=== PATIENT | male | born 1935 | race Caucasian/White ===

== ENCOUNTER 2017-05-11 08:50 | Inpatient (IN) | payer OTHER ==
--- NOTE | 2017-05-11 09:01 | EDPHY ---
H & P Time Seen by Provider: 05/11/17 08:51 HPI/ROS: CHIEF COMPLAINT: Altered mental status HISTORY OF PRESENT ILLNESS: The patient presents to the ED with reported altered mental status which began acutely at approximately 815 this morning. The patient reportedly lives at a memory unit. He has a history of dementia and Parkinson's disease. He reportedly was in his usual state of health this morning according to EMS and then was observed to collapse. Since that time he has been nonverbal. REVIEW OF SYSTEMS: A comprehensive 10 point review of systems is otherwise negative aside from elements mentioned in the history of present illness. Source: Patient Exam Limitations: Clinical condition Constitutional: Initial Vital Signs Heart Rate 71 05/11/17 09:01 Respiratory Rate 16 05/11/17 09:01 Blood Pressure 163/85 H 05/11/17 09:01 O2 Sat (%) 98 05/11/17 09:01 O2 Delivery Mode Nasal Cannula O2 (L/minute) 2 Allergies/Adverse Reactions: No Known Allergies Allergy (Unverified 10/18/10 20:51) Home Medications: Medication Instructions Recorded Ammonium Lactate [Lac Hydrin 12% 1 larry TP BID@,05/11/17 (*)] Aspirin [Aspirin 325 mg (*)] 325 mg PO DAILY 05/11/17 Atorvastatin Calcium [Lipitor 20 20 mg PO DAILY18 05/11/17 mg (*)] Carbidopa/Levodopa 25/100Mg 1 tab PO TID@,,05/11/17 [Sinemet 25/100 MG (*)] Cholecalciferol Vit D3 [Vitamin D3 2,000 units PO DAILY 05/11/17 2000 units tab (OTC)] Cyanocobalamin [Vitamin B12 (*)] 1,000 mcg PO DAILY 05/11/17 Docusate Sodium [Colace 100 MG (*)] 200 mg PO DAILY18 05/11/17 Donepezil HCl [Aricept 5 MG (*)] 10 mg PO HS 05/11/17 Fludrocortisone Acetate [Florinef 0.05 mg PO DAILY 05/11/17 0.1 MG (RX)] Herbals/Supplements -Info Only 1 ea PO DAILY 05/11/17 Ketoconazole 2% [Nizoral 2% Cream 1 larry TP DAILY 05/11/17 (*)] Mirabegron [Myrbetriq] 25 mg PO HS 05/11/17 [place]-3 Fatty Acids [Fish Oil 1000 2,000 mg PO DAILY 05/11/17 mg (*)] Oxybutynin Chloride Xl [Ditropan 20 mg PO DAILY18 05/11/17 Xl 5mg (*)] QUEtiapine FUMARATE [Seroquel 50 50 mg PO HS 05/11/17 mg (*)] guaiFENesin [Mucinex 600 MG (*)] 1,200 mg PO DAILY 05/11/17 Medical Decision Making - Diagnostics Imaging Results: Imaging Impressions Chest X-Ray 05/11/17 08:54 Impression: Negative Head CT 05/11/17 08:54 Impression: Negative. Initial negative results communicated to Dr. Donis Aguillon by Dr. Acevedo, with the patient on the CT table. Final concordant results called to Dr. Donis Aguillon at 9: [address] Mills. General information for patients regarding this examination can be found at [email or web address]. If you have questions or comments about this report, please contact me at (hospital) or [phone] (cell). Head CTA 05/11/17 09:10 Impression: Normal. Findings and recommendations discussed with Ketan Aguillon at 945 a.m. hour, 05/11/2017. Final report concurs with initial preliminary interpretation. Neck CTA 05/11/17 09:10 Impression: No dissection, stenosis, ulceration, or aneurysm. Findings and recommendations discussed with Ketan Aguillon at 9:45 AM hour, . Final report concurs with initial preliminary interpretation. Note: All stenoses are calculated using NASCET Criteria. ED Course/Re-evaluation: The patient presents the ED with acute altered mental status. He arrived as a stroke alert. The patient was quite encephalopathic and unable to provide a very good exam upon arrival. He was observed to withdrawal to pain all 4 extremities. The patient was taken for a stat noncontrast head CT scan which was read as demonstrating no evidence of an acute intracranial hemorrhage. The patient was seen in consultation by the neurologist who felt the patient was more likely encephalopathic than exhibiting symptoms of a stroke. They recommended a CT angiogram for further characterization. The patient was taken for emergent CT angiogram which demonstrates no evidence of avascular stenosis, thrombosis or dissection in the head or neck. The patient returned and was noted to be clinically improving. The patient has no evidence of an obvious metabolic syndrome or clear-cut evidence of urinary tract infection. The patient was noted to have bouts of bradycardia and associated hypotension. These were brief and self-limited. The patient did receive IV fluids. The patient will be admitted to the hospitalist for further observation. I discussed the case with Dr. Chaidez who will admit the patient. Differential Diagnosis: Differential diagnosis considered includes stroke, TIA, UTI, hypoglycemia, intracranial hemorrhage Critical Care Time: Critical care time exclusive of procedures and exclusive of the PA's time was 45 minutes, performed by myself, Ketan Aguillon MD. The patient was brought to the emergency department emergently is a stroke alert. He received emergent evaluation by the stroke neurologist. He was taken for [address] scans. The patient will require admission to the hospital for further observation and monitoring. - Data Points Laboratory Results: Laboratory Results 05/11/17 08:45 05/11/17 08:45 05/11/17 05/11/17 05/11/17 09:40 08:56 08:45 WBC RBC Hgb POC Hgb 16.3 gm/dL gm/dL (13.7-17.5) Hct POC Hct 48 % % (40-51) MCV MCH MCHC RDW Plt Count MPV Neut % (Auto) Lymph % (Auto) [place] % (Auto) Eos % (Auto) Baso % (Auto) Nucleat RBC Rel Count Absolute Neuts (auto) Absolute Lymphs (auto) Absolute Monos (auto) Absolute Eos (auto) Absolute Basos (auto) Absolute Nucleated RBC Immature Gran % Immature Gran # PT INR APTT POC Sodium 140 mEq/L mEq/L (135-145) Sodium 140 mEq/L mEq/L (135-145) POC Potassium 3.6 mEq/L mEq/L (3.3-5.0) Potassium 3.9 mEq/L mEq/L (3.5-5.2) POC Chloride 101 mEq/L mEq/L (97-110) Chloride 102 mEq/L mEq/L (97-110) Carbon Dioxide 26 mEq/l mEq/l (22-31) Anion Gap 12 mEq/L mEq/L (8-16) POC BUN 14 mg/dL mg/dL (7-23) BUN 14 mg/dL mg/dL (7-23) Creatinine 1.0 mg/dL mg/dL (0.7-1.3) POC Creatinine 1.1 mg/dL mg/dL (0.7-1.3) Estimated GFR > 60 Glucose 143 mg/dL H mg/dL (70-100) POC Glucose 161 mg/dL H mg/dL (70-100) Calcium 8.7 mg/dL mg/dL (8.5-10.4) Troponin I < 0.012 ng/mL ng/mL (0.000-0.034) Urine Color YELLOW Urine Appearance CLEAR Urine pH 6.0 (5.0-7.5) Ur Specific [place] > 1.035 H (1.002-1.030) Urine Protein 1+ H (NEGATIVE) Urine Ketones NEGATIVE (NEGATIVE) Urine Blood NEGATIVE (NEGATIVE) Urine Nitrate NEGATIVE (NEGATIVE) Urine Bilirubin NEGATIVE (NEGATIVE) Urine Urobilinogen NEGATIVE EU EU (0.2-1.0) Ur Leukocyte Esterase NEGATIVE (NEGATIVE) Urine RBC NONE SEEN /hpf /hpf (0-3) Urine WBC 3-5 /hpf H /hpf (0-3) Ur Epithelial Cells NONE SEEN /lpf /lpf (NONE-1+) Hyaline Casts 1-5 /lpf /lpf (0-1) Granular Casts 1-5 /lpf /lpf (0-1) Urine Mucus TRACE /lpf /lpf (NONE-1+) Urine Glucose 1+ H (NEGATIVE) 05/11/17 05/11/17 08:45 08:45 WBC 6.55 10^3/uL 10^3/uL (3.80-9.50) RBC 4.95 10^6/uL 10^6/uL (4.40-6.38) Hgb 15.8 g/dL g/dL (13.7-17.5) POC Hgb Hct 45.6 % % (40.0-51.0) POC Hct MCV 92.1 fL fL (81.5-99.8) MCH 31.9 pg pg (27.9-34.1) MCHC 34.6 g/dL g/dL (32.4-36.7) RDW 12.9 % % (11.5-15.2) Plt Count 255 10^3/uL 10^3/uL (150-400) MPV 9.3 fL fL (8.7-11.7) Neut % (Auto) 59.6 % % (39.3-74.2) Lymph % (Auto) 25.6 % % (15.0-45.0) [place] % (Auto) 10.5 % % (4.5-13.0) Eos % (Auto) 2.6 % % (0.6-7.6) Baso % (Auto) 0.8 % % (0.3-1.7) Nucleat RBC Rel Count 0.0 % % (0.0-0.2) Absolute Neuts (auto) 3.90 10^3/uL 10^3/uL (1.70-6.50) Absolute Lymphs (auto) 1.68 10^3/uL 10^3/uL (1.00-3.00) Absolute Monos (auto) 0.69 10^3/uL 10^3/uL (0.30-0.80) Absolute Eos (auto) 0.17 10^3/uL 10^3/uL (0.03-0.40) Absolute Basos (auto) 0.05 10^3/uL 10^3/uL (0.02-0.10) Absolute Nucleated RBC 0.00 10^3/uL 10^3/uL (0-0.01) Immature Gran % 0.9 % % (0.0-1.1) Immature Gran # 0.06 10^3/uL 10^3/uL (0.00-0.10) PT 14.7 SEC SEC (12.0-15.0) INR 1.13 (0.83-1.16) APTT 22.9 SEC L SEC (23.0-38.0) POC Sodium Sodium POC Potassium Potassium POC Chloride Chloride Carbon Dioxide Anion Gap POC BUN BUN Creatinine POC Creatinine Estimated GFR Glucose POC Glucose Calcium Troponin I Urine Color Urine Appearance Urine pH Ur Specific [place] Urine Protein Urine Ketones Urine Blood Urine Nitrate Urine Bilirubin Urine Urobilinogen Ur Leukocyte Esterase Urine RBC Urine WBC Ur Epithelial Cells Hyaline Casts Granular Casts Urine Mucus Urine Glucose Medications Given: Discontinued Medications Sodium Chloride (Ns) 1,000 mls @ 0 mls/hr IV EDNOW ONE; Wide Open PRN Reason: Protocol Stop: 05/11/17 10:47 Last Admin: 05/11/17 10:49 Dose: 1,000 mls Point of Care Test Results: 05/11/17 08:56 POC Sodium 140 POC Potassium 3.6 POC Chloride 101 POC BUN 14 POC Creatinine 1.1 POC Glucose 161 H Departure - Departure Disposition: [facility] Inpatient Acute Clinical Impression: Parkinsons disease, Altered mental status, Dementia Condition: Fair
[2017-05-11 09:07] LABS: PLATELET COUNT 255 10^3/uL (150-400)
--- NOTE | 2017-05-11 09:07 | CPEKG ---
Heart Rate: 61 RR Interval: 984 P-R Interval: 220 QRSD Interval: 102 QT Interval: 492 QTC Interval: 496 P [place]: -3 QRS [place]: -86 T Wave [place]: 70 EKG Severity - ABNORMAL ECG - EKG Impression: SINUS RHYTHM EKG Impression: VENTRICULAR PREMATURE COMPLEX EKG Impression: FIRST DEGREE AV BLOCK EKG Impression: LEFT ANTERIOR FASCICULAR BLOCK EKG Impression: BORDERLINE PROLONGED QT INTERVAL Electronically Signed By: Ketan Aguillon 11-May-2017 15:07:57
[2017-05-11 09:12] LABS: INR 1.13 (0.83-1.16); PROTIME(PATIENT) 14.7 SEC (12.0-15.0)
[2017-05-11] MEDS ORDERED: IOPAMIDOL (ISOVUE 370) 100 ML BTL IV ONE (09:14)
--- NOTE | 2017-05-11 09:25 | ASMTCMCOM ---
CM Note CM Note Notes: Pt arrived to ED as a Stroke Alert. Currently responsive to painful stimuli only. Spoke with RN & MD; RICHIE form, MOST form & Emergency Resident information form obtained. Pt is a resident at [facility] & has a hx of Parkinsons & Dementia. Spoke with [facility] & confirmed pt lives in Memory Care Unit. Pt's & MDPOA, Pat Gutierrez ([phone] c [phone]), contacted. Pat to contact pt's daughter Judith (c [phone]). Pat & Judith will be at [facility] as soon as possible. MD & RN updated. Paperwork given back to RN to be placed in pt's chart. CM will follow. Date Signed: 05/11/2017 09:24 AM Electronically Signed By:Madisyn Wing RN
[2017-05-11] MEDS ORDERED: NS 1,000 ML IV ONE ×2 (10:46)
[2017-05-11] MEDS ORDERED: ACETAMINOPHEN 325 MG TAB PO PRN (14:33)
--- NOTE | 2017-05-11 18:01 | GHP ---
[f rep st] HISTORY AND PHYSICAL DATE OF ADMISSION: 05/11/2017 PRIMARY CARE PROVIDER: [facility]. CHIEF COMPLAINT: Fall. HISTORY OF PRESENT ILLNESS: Mr. Gutierrez is a 81-year-old gentleman with a past medical history of dem entia and parkinsonism, who presented to the [facility] Emergency Room on 05/11/2017, after having a fall at his memory unit. He had been living at home with his up until about a w [place] point ago when he was transitioned to [facility] as he had been having increased falls at home, and his was unable to completely care for him. He was apparently ambulating around his room today when he reportedly slid to the floor while using his walker. There was some concern on i nitial EMS evaluation that he had a facial droop, so he came to the emergency room as a stroke alert. Teleneurology was consulted in the emergency room. The description received by the event was that he went to the ground; he was groaning but not conversant as he normally is. This was not described as a syncopal episode or losing consciousness. He does have a history of parkinsonism and followed b y neurology here locally and he also does have a history of orthostasis and is currently on Florinef. He follows with Cardiology here locally in regard to his Florinef prescription. PAST MEDICAL HISTORY: 1. Dementia. 2. Parkinsonism. 3. Coronary artery disease diagnosed by a cardiac catheterization, but no PCI or CABG was warranted by the nonocclusive disease found. 4. Orthostasis. 5. BPH. PAST SURGICAL HISTORY: 1. Cataract surgery. 2. Hernia repair. 3. TURP. MEDICATIONS: This medication list is taken from his ambulatory orders: 1. Aspirin 325 mg daily. 2. Lipitor 20 mg daily. 3. Carbidopa/levodopa 25/100 1 tab 3 times a day. 4. Vitamin D supplementation. 5. Vitamin B12 supplementation. 6. Colace 200 mg daily. 7. Aricept 10 mg nightly. 8. Florinef 0.1 mg tablet, half tablet daily. ALLERGIES: No known drug allergies. FAMILY HISTORY: No family history of Parkinson disease. His mother at a young age from kidney disease. SOCIAL HISTORY: Patient is a nonsmoker. He had lived with his up until just the past 2 weeks w hen he was transitioned into memory unit. CODE STATUS: Do not attempt resuscitation code status. REVIEW OF SYSTEMS: CONSTITUTIONAL: There has been no report of any fevers or chills. ENT: No rece nt upper respiratory illnesses. CARDIOVASCULAR: No complaints of any chest pain, palpitations, or s yncopal episodes. RESPIRATORY: No complaints of shortness of breath or productive cough. GI: No n ausea, vomiting, diarrhea, or constipation. No focal abdominal pains. : He does have a history o f frequency of urination for which he had been taking Myrbetriq and Ditropan. NEUROLOGIC: Positive for parkinsonism history and followed by neurology here locally. No history of strokes. HEMATOLOGIC : No history of any deep vein thrombosis or pulmonary embolism. PSYCHIATRIC: No history of anxiety or depression. ENDOCRINE: No history of thyroid abnormalities or diabetes. SKIN: No new skin sonja hes. MUSCULOSKELETAL: No focal joint pains. PHYSICAL EXAMINATION: VITAL SIGNS: Temperature 36.5, blood pressure 108/63, heart rate 73, respirat ions 16, satting 98% on room air. GENERAL: Patient resting comfortably, lying on his side in the be d, arousable, somewhat conversant, no acute distress. HEENT: Extraocular movements appear intact. No scleral icterus. Mucous membranes moist. NECK: Supple. No thyroid enlargement appreciated. CH EST: Clear on auscultation. Normal respiratory effort. HEART: Regular rate and rhythm. No murmur s. ABDOMEN: Soft, nontender, nondistended. : No Padgett catheter in place. EXTREMITIES: No signif icant pitting edema. MUSCULOSKELETAL: No calf pain with palpation. NEUROLOGIC: Cranial nerves 2 t [id number] appear intact. Strength appears 5/5 in all extremities. His hand grasp was 5/5 and he had difficulty releasing his hand grasps when instructed to. He does have some cogwheel rigidity, I susp ect, of the upper extremities and masked facies with bradykinesia. LABORATORY DATA: White blood cell count 6, hemoglobin 15, platelets 255. Sodium 140, potassium 3.9, chloride 102, bicarb 26, BUN 14, creatinine 1.0, glucose 143. INR 1.1, PTT 22. Troponin less than 0.012. Urinalysis: Negative nitrite, negative leukocyte esterase. IMAGIN. Chest x-ray: Negative. 2. Head CT without contrast: Negative. 3. CTA head and neck: Normal CTA of the head. No dissection, stenosis, ulceration, or aneurysm see n on the CTA of the neck. ASSESSMENT/PLAN: 1. Fall: Uncertain etiology and probably multifactorial. I certainly think that the history of ort hostasis probably is playing a role and will continue with his current Florinef. Parkinsonism may diaz ve contributed to the fall, as well. I did put in for a neurology consultation for reassessment of h is current medication therapy and to determine if any changes are needed. I do recommend that we try to hold off on his Seroquel for now as this could have been playing a role in this; it sounds like i t was a recently started medication. Also recommend we hold off on Ditropan and Myrbetriq for the ti me being as well. PT and OT consults have been placed. 2. Dementia: Will continue with current Aricept. 3. Parkinsonism: Await consultation from Neurology. 4. Coronary artery disease: Currently asymptomatic. Patient apparently had nonocclusive disease on prior cardiac catheterization. Continue current medical management including aspirin and statin the rapy. 5. Orthostasis: Continue current Florinef. Of note patient did have a one blood pressure reading o f 69/46 while in the emergency room. 6. Benign prostatic hypertrophy: Will need to monitor urinary symptoms after holding Myrbetriq and Ditropan. 7. Deep venous thrombosis prophylaxis: Lovenox. DISPOSITION: I will admit him under an observation status. I talked with his , who stated she w as uncertain if he would be able to go back to [facility] after discharge from the hospital here. She did state there was a facility in [place], which they have been looking at as a possible alterna tive option for his placement. I did touch base with Social Work this afternoon, and they are aware and looking at the issue. The patient is a [id number]-resuscitation code status. /[id number]/MODL
[2017-05-11] MEDS: DOCUSATE SODIUM 100 MG CAP PO SCH (18:22)
[2017-05-11] MEDS: AMMONIUM LACTATE 12% 8 OZ LOTION TP SCH (18:22)
[2017-05-11] MEDS: ATORVASTATIN CALCIUM 20 MG TAB PO SCH (18:22)
[2017-05-11] MEDS: CARBIDOPA/LEVODOPA 25 MG/100 MG TAB PO SCH (18:22)
[2017-05-11] MEDS: DONEPEZIL HCL 5 MG TAB PO SCH (22:26)
[2017-05-12] MEDS ORDERED: QUEtiapine FUMARATE 25 MG TAB PO ONE (00:20)
[2017-05-12 05:16] LABS: PLATELET COUNT 229 10^3/uL (150-400)
[2017-05-12] MEDS: CYANO/VITAMIN B12 1000 MCG TAB PO SCH (08:48)
[2017-05-12] MEDS: CARBIDOPA/LEVODOPA 25 MG/100 MG TAB PO SCH ×3 (08:48→18:49)
[2017-05-12] MEDS: ENOXAPARIN 40 MG/0.4 ML SYR SC SCH (08:48)
[2017-05-12] MEDS: ASPIRIN 325 MG TAB PO SCH (08:48)
[2017-05-12] MEDS: CHOLECALCIFEROL VIT D3 2,000 UNITS TAB/CAP PO SCH (08:48)
--- NOTE | 2017-05-12 10:26 | HOSPPROG ---
Hospitalist Progress Note Assessment/Plan: Patient is a 81-year-old male with a history of dementia and Parkinson's. He presented to the emergency room after sustaining a fall at his memory care unit. There was some initial concern that he had a facial droop. He presented as a stroke alert. Tele neurology was consulted. He had a CTA of his head and neck which showed nothing acute. Today is my 1st encounter with the patient. Chart reviewed. Reviewed his care with neurology and will not resume Seroquel. Melatonin will be used for sleep. * gait instability with a fall -suspect this is multi factorial. He has Parkinson's as well as underlying dementia -Seroquel, Ditropan and Myrbetriq have been held in case they are causing problems with him falling * Parkinson's -likely has underlying orthostasis: Florinef resume *dementia -quite significant *CAD -no complaints *BPH *DVT prophylaxis: LMWH *Plan: will ask PT and OT to evaluate. During my evaluation, his gait was unsteady and he has significant dementia. He is at high risk for falling. He will require another midnight stay for further evaluation. Suspect he needs a higher level of care. Subjective: Doc is sitting on side of bed, has no complaints. Objective: Vital Signs Temp Pulse Resp BP Pulse Ox 36.4 C 86 16 136/88 H 96 05/12/17 07:24 05/12/17 07:24 05/12/17 07:24 05/12/17 07:24 05/12/17 07:24 Laboratory Results 05/12/17 05:01 05/12/17 05:01 05/11/17 05/12/17 05/13/17 05:59 05:59 05:59 Intake Total 1500 Output Total 150 Balance 1350 PT 14.7 SEC (12.0-15.0) 05/11/17 08:45 INR 1.13 (0.83-1.16) 05/11/17 08:45 - Physical Exam Constitutional: chronically ill appearing, other (thin) Eyes: PERRL Ears, Nose, Mouth, Throat: hearing normal Cardiovascular: regular rate and rhythym Respiratory: no respiratory distress Skin: warm Musculoskeletal: generalized weakness Neurologic: other (alert, oriented to himself only) Psychiatric: encephalopathic, poor insight, poor judgement, poor memory ICD10 Worksheet Patient Problems: Problems Problem Status Onset Altered mental status Acute Dementia Acute Parkinsons disease Acute
[2017-05-12] MEDS: AMMONIUM LACTATE 12% 8 OZ LOTION TP SCH ×2 (12:45→20:32)
--- NOTE | 2017-05-12 12:49 | GCON ---
[f rep st] CONSULTATION NEUROLOGY CONSULTATION DATE OF CONSULTATION: 05/12/2017 REFERRING PHYSICIAN: Dr. Chaidez. CHIEF COMPLAINT: Dementia and alteration of mental status. HISTORY OF PRESENT ILLNESS: The patient is a very pleasant 81-year-old gentleman well known to the neurology service, as he sees my group as an outpatient for dementia with parkinsonian features, query Lewy body disease. He has been treated with dopaminergic agents in the past, but they were discontinued due to blood pressure side effects. He had recently been tried on gabapentin for sleep, but caused adverse affects, and it was discontinued, then more recently put on Seroquel just a few days ago. In this context, he was transferred to [facility] from his home for a new living situation. He had sudden change in mental status after starting Seroquel, and was transferred to the Emergency Department. He appeared "slumped over his walker" briefly according to his . Unclear if he fell asleep or had altered mental status. He had a full stroke assessment performed. Head CT without contrast was negative. CTA of the neck showed no dissection, stenosis, ulceration, or aneurysm. CTA of the head was normal. Initial labs showed essentially normal CBC. Chemistries showed normal sodium and creatinine. REVIEW OF SYSTEMS: Done with his present, and only pertinent per HPI. For past medical history, social history, family history, home medications, allergies see Dr. Chaidez's H and P. PHYSICAL EXAMINATION: VITAL SIGNS: Blood pressure 136/88, temperature 36.4, heart rate 67, respirations 16. GENERAL: The patient is awake and alert. NEURO: Higher mental function, he has significant cognitive impairment, and is unable to answer questions coherently, and trails off his answers due to his underlying dementia. Cranial nerve exam reveals full extraocular movements. On motor exam, there is no convulsive movements or tremor at rest on exam today. IMPRESSION AND PLAN: 1. Dementia. Overall, he certainly may have had side effects from Seroquel or other nonspecific changes in mental status in the setting of advanced dementia. We will discontinue Seroquel. Gabapentin has already been discontinued. Going forward, I have counseled the patient and his that they could use over-the- counter melatonin 5-10 mg at bedtime for sleep as needed. They are agreeable. They will follow up with Mr. Walker as an outpatient for continued neurologic assessment and to discuss other non-dopaminergic agents in the setting of query Lewy body disease. No further recommendations. He will likely discharge back to [facility] in the near future. We will sign off and follow up as needed. Please do not hesitate to call with any questions or changes in neurologic status with this very pleasant patient. seventy minutes floor time, reviewing outpatient records, inpatient records, direct counseling with the patient and his family, and coordination of care. /[id number]/MODL MTDD
[2017-05-12] MEDS: FLUDROCORTISONE ACETATE 0.1 MG TAB PO SCH (13:56)
[2017-05-12] MEDS: guaiFENesin 600 MG TAB.ER PO SCH (13:57)
[2017-05-12] MEDS: OMEGA-3 FATTY ACIDS 1,000 MG CAP PO SCH (13:58)
--- NOTE | 2017-05-12 16:29 | PDMN ---
Medical Necessity Medical necessity: C/M review: est. > 2 MN LOS for eval and TX of acute and persistent gait instability requiring ongoing hold Serequel, Ditropan and Mybetriq medications in case they are causing patient problems with falling, acute inpt PT/OT, comorbid fall prior to this admission, Parkinson's disease, significant dementia, CAD, BPH, patient is at high risk of falling per 2017 Hospitalist progress notes.
[2017-05-12] MEDS: ATORVASTATIN CALCIUM 20 MG TAB PO SCH (18:49)
[2017-05-12] MEDS: DOCUSATE SODIUM 100 MG CAP PO SCH (18:50)
[2017-05-12] MEDS: DONEPEZIL HCL 5 MG TAB PO SCH (20:46)
[2017-05-13 04:49] LABS: PLATELET COUNT 245 10^3/uL (150-400)
[2017-05-13 05:14] VITALS: RESP 18
[2017-05-13] MEDS: ASPIRIN 325 MG TAB PO SCH (08:12)
[2017-05-13] MEDS: CARBIDOPA/LEVODOPA 25 MG/100 MG TAB PO SCH (08:12)
[2017-05-13] MEDS: AMMONIUM LACTATE 12% 8 OZ LOTION TP SCH (08:13)
[2017-05-13] MEDS: FLUDROCORTISONE ACETATE 0.1 MG TAB PO SCH (08:13)
--- NOTE | 2017-05-13 08:41 | HOSPPROG ---
Hospitalist Progress Note Assessment/Plan: Patient is a 81-year-old male with a history of dementia and Parkinson's. He presented to the emergency room after sustaining a fall at his memory care unit. There was some initial concern that he had a facial droop. He presented as a stroke alert. Tele neurology was consulted. He had a CTA of his head and neck which showed nothing acute. * gait instability with a fall -suspect this is multi factorial. He has Parkinson's as well as underlying dementia -Seroquel, Ditropan and Myrbetriq have been held in case they are causing problems with him falling * Parkinson's -likely has underlying orthostasis: Florinef resume *dementia -quite significant *CAD -no complaints *BPH *DVT prophylaxis: LMWH *Plan: changed his code status to DNR/ to return to [place] this morning/ not to resume Seroquel Subjective: Doc is asking for his . Objective: Vital Signs Temp Pulse Resp BP Pulse Ox 37.2 C 85 18 174/94 H 95 05/13/17 04:00 05/13/17 04:00 05/13/17 04:00 05/13/17 04:00 05/13/17 04:00 Laboratory Results 05/13/17 04:40 05/13/17 04:40 05/12/17 05/13/17 05/14/17 05:59 05:59 05:59 Intake Total 340 Balance 340 PT 14.7 SEC (12.0-15.0) 05/11/17 08:45 INR 1.13 (0.83-1.16) 05/11/17 08:45 - Physical Exam Constitutional: chronically ill appearing Eyes: PERRL Ears, Nose, Mouth, Throat: hearing normal Respiratory: no respiratory distress Skin: warm Musculoskeletal: generalized weakness Neurologic: other (alert) Psychiatric: encephalopathic, flat affect, poor insight, poor judgement, poor memory ICD10 Worksheet Patient Problems: Problems Problem Status Onset Altered mental status Acute Dementia Acute Parkinsons disease Acute
--- NOTE | 2017-05-13 09:10 | PDIAF ---
- Diagnosis Diagnosis: gait instablity w fall, advanced Parkinsons Code Status: Do Not Resuscitate - Medication Management Discharge Medications: Medications to Continue on Transfer Ammonium Lactate [Lac Hydrin 12% (*)] 1 larry TP BID@05/11/17 [Last Taken 18:00] Aspirin [Aspirin 325 mg (*)] 325 mg PO DAILY 05/11/17 [Last Taken 05/10/17] Atorvastatin Calcium [Lipitor 20 mg (*)] 20 mg PO DAILY18 05/11/17 [Last Taken 05/10/17] Carbidopa/Levodopa 25/100Mg [Sinemet 25/100 MG (*)] 1 tab PO TID@ [Last Taken 05/10/17 18:00] Cholecalciferol Vit D3 [Vitamin D3 2000 units tab (OTC)] 2,000 units PO DAILY [Last Taken 05/10/17] Cyanocobalamin [Vitamin B12 (*)] 1,000 mcg PO DAILY 05/11/17 [Last Taken ] Docusate Sodium [Colace 100 MG (*)] 200 mg PO DAILY18 05/11/17 [Last Taken 05/10] Donepezil HCl [Aricept 5 MG (*)] 10 mg PO HS 05/11/17 [Last Taken 05/10/17] Fludrocortisone Acetate [Florinef] 0.05 mg PO DAILY 05/11/17 [Last Taken ] Herbals/Supplements -Info Only 1 ea PO DAILY 05/11/17 [Last Taken Unknown] Ketoconazole 2% [Nizoral 2% Cream (*)] 1 larry TP DAILY 05/11/17 [Last Taken 05/10] [place]-3 Fatty Acids [Fish Oil 1000 mg (*)] 2,000 mg PO DAILY 05/11/17 [Last Taken 05/10/17] guaiFENesin [Mucinex 600 MG (*)] 1,200 mg PO DAILY 05/11/17 [Last Taken 05/10/17 ] Acetaminophen [Tylenol 325mg (*)] 650 mg PO Q4HRS PRN tab 05/13/17 [Last Taken Unknown] Discharge Medications: Refer to the Discharge Home Medication list for PRN reason. - Orders Services needed: Physical Therapy, Occupational Therapy Diet Recommendation: no restrictions on diet Diet Texture: Regular Texture Diet Additional: Seroquel has been discontinued. If patient needs help with sleep recommendation is a trial Melatonin. Myrbetriq and Ditropan have been dc in case these are affecting his risk of falling. Recommending talking w PCP if these should be restarted. - Follow Up Care Current Providers and Referrals: Patient,NotPresent [Unknown] - As per Instructions
[2017-05-13 09:15] VITALS: BP 110/68; PULSE 75; TEMP 97.4; O2SAT 97
[2017-05-13] MEDS: CHOLECALCIFEROL VIT D3 2,000 UNITS TAB/CAP PO SCH (09:22)
[2017-05-13] MEDS: CYANO/VITAMIN B12 1000 MCG TAB PO SCH (09:22)
[2017-05-13] MEDS: guaiFENesin 600 MG TAB.ER PO SCH (09:22)
[2017-05-13] MEDS: OMEGA-3 FATTY ACIDS 1,000 MG CAP PO SCH (09:23)
--- NOTE | 2017-05-13 09:33 | GDS ---
[f rep st] DISCHARGE SUMMARY DISCHARGE DIAGNOSES: 1. Gait instability with fall. 2. Advanced Parkinson's. 3. Significant dementia. 4. Coronary artery disease. 5. Benign prostatic hypertrophy. CONSULTATION: Dr. Trevin Akhtar. HISTORY OF PRESENT ILLNESS: Briefly the patient is a 81-year-old male with a history of dementia and Parkinson's. He presented to the emergency room after sustaining a fall at the memory care unit. T here was initial concern that he had facial droop and was presented as stroke and alert. Tele neurol ogy was consulted. He had imaging done that did not indicate anything acute. The suspicion is that he fell being started on Seroquel. HOSPITAL COURSE: 1. Gait instability with fall. This is multifactorial with his advanced Parkinson's as well as adva nced dementia. Seroquel, Ditropan and Myrbetriq have all been held. The recommendation is to not re sume the Seroquel. 2. Parkinson's. He likely has underlying orthostasis. Florinef was resumed. 3. Dementia. This is quite significant. 4. Coronary artery disease. No complaints. DISCHARGE CONDITION: Stable. Blood pressure is 174/94, heart rate is 85, respiratory rate is 18, O2 saturation on room air 95%, te mperature is 37.2 Celsius. MEDICATIONS AT DISCHARGE: Please see the EMR. DISCHARGE INSTRUCTIONS: To further follow up with the primary care provider to evaluate which medica tions can be continued. /[id number]/MODL
--- NOTE | 2017-05-13 10:25 | ASDISCHSUM ---
Discharge Information Plan Status:Assisted Living Medically Cleared to Leave:05/13/2017 Discharge Date:05/13/2017 CM D/C Disposition:Assisted Living ADT D/C Disposition:Group Home Facility Projected Discharge Date:05/13/2017 12:00 PM Transportation at D/C:ALS/BLS Discharge Delay Reason: Follow-Up Date:05/13/2017 12:00 PM Discharge Slot:1 - 8:01 am - 12:00 noon Final Diagnosis:AMS, Dementia, Parkinson's Placement Information Referral Type:*Home Health Care Services Referral ID:[id number] Provider Name:[facility] (formerly [facility]) Address 1:[address] [address] Address 2: City:[place] Selection Factors: State:[place] Referral Type:*Retirement/SNF Referral ID:[id number] Provider Name: Address 1: Phone Number: Address 2: Fax Number: City: Selection Factors: State: Patient Contact Information Contact Name:BAY Relationship:Daughter Address: City: [facility] Phone: State/Zip Code: Email: Financial Information Financial Class:Medicare Primary Plan Desc:MEDICARE OUTPATIENT Primary Plan Number:[id number] Secondary Plan Desc:[employer] Secondary Plan Number:[id number] Assessment Information BC CM Progress Note CM Note CM Note Notes: Pt arrived to ED as a Stroke Alert. Currently responsive to painful stimuli only. Spoke with RN & MD; RICHIE form, MOST form & Emergency Resident information form obtained. Pt is a resident at [facility] & has a hx of Parkinsons & Dementia. Spoke with [facility] & confirmed pt lives in Memory Care Unit. Pt's & MDPASPEN, Pat Gutierrez ([phone] c [phone]), contacted. Pat to contact pt's daughter Judith (c [phone]). & Judith will be at [facility] as soon as possible. MD & RN updated. Paperwork given back to RN to be placed in pt's chart. CM will follow. Date Signed: 05/11/2017 09:24 AM Electronically Signed By:Madisyn Wing RN Case Management Discharge Plan Note Case Management Discharge Discharge Order Complete? Answers: Yes Patient to Obtain Answers: via Family Medications Transportation Arranged Answers: [facility] will Pick (Date 05/13/2017 11:30 AM & Time) Case Management Transport Answers: Yes Form Complete Faxed Final Orders Answers: Yes Notes: to Family Notified Answers: Yes Notes: Spoke to Discharge Comments Notes: Patient has been discharged to [facility] Faxed patient info to . [facility] to transport Date Signed: 05/13/2017 10:15 AM Electronically Signed By:Noelle Steven LCSW Intervention Information Intervention Type:Locating Emergency Contact Date of Service:05/11/2017 11:35 AM Patient Type:Observation Staff Member:EDDIE Wing Courtney Hours:0.25 Discipline: Severity: Comment:
[2017-05-13] MEDS: ENOXAPARIN 40 MG/0.4 ML SYR SC SCH (10:36)
== END 2017-05-13 11:42 | DRG 57 ==
LOC: EDUNIT# → F3N 13:45 → OBSVTOIN 05-12 14:48
PROVIDERS: ADMIT Internal Medicine; ATTEND Internal Medicine
DX: G31.83 Neurocognitive disorder with Lewy bodies (principal); R29.6 Repeated falls; T43.505A Adverse effect of unspecified antipsychotics and neuroleptics, initial encounter; F02.80 Dementia in other diseases classified elsewhere, unspecified severity, without behavioral disturbance, psychotic disturbance, mood disturbance, and anxiety; I25.10 Atherosclerotic heart disease of native coronary artery without angina pectoris; N40.0 Benign prostatic hyperplasia without lower urinary tract symptoms; W19.XXXA Unspecified fall, initial encounter; Z66 Do not resuscitate
CPT/HCPCS: 82947-QW; G0378; J1650; Q9967

== ENCOUNTER 2017-05-21 18:44 | Emergency (ER) | payer OTHER ==
[2017-05-21 18:53] VITALS: RESP 16; TEMP 98.2
--- NOTE | 2017-05-21 18:57 | EDPHY ---
HPI/HX/ROS/PE/MDM Narrative: CHIEF COMPLAINT: Fall HPI: This patient is a non-anticoagulated 81 y/o male with history of dementia with parkinsonian features arriving via EMS following an unwitnessed fall earlier this evening. [place] [facility] [place] on ground level, likely from standing. Per EMS report, vitals were stable in transport. They did not find any obvious trauma on exam. The patent denies any pain. He does not remember why he is here in the emergency department. The patient was recently admitted 05/12/17 following another fall at his memory care facility. HPI primarily obtained from EMS report at bedside. Further HPI unobtainable due to patient's Alzheimer's dementia. REVIEW OF SYSTEMS: Unobtainable due to patient's dementia. PMH: Dementia with parkinsonian features. CAD. Orthostasis. BPH. Hernia repair. TURP. SOCIAL HISTORY: [place] [facility] [place] . [place]. PHYSICAL EXAM: General:Patient is alert, in no acute distress. ENT:Eyes are normal to inspection. ENT inspection normal. Neck: Normal inspection. Full range of motion. Respiratory:No respiratory distress. Breath sounds normal bilaterally. Cardiovascular: Regular rate and rhythm. Strong peripheral pulses. Normal cap refill. Abdomen:The abdomen is nontender to palpation. There are no peritoneal signs. There are normal bowel sounds. Back: Normal to inspection. No tenderness to palpation. Skin: Normal color. No rash. Warm and dry. Extremities: Normal appearance. Full range of motion. Neuro: Conversant. No focal deficits. ED Course: 18:48 Met EMS at bedside. 81 y/o male with advanced dementia with parkinsonian features presents following an unwitnessed fall. Plan for EKG, labs including CBC, chemistries, troponin. The patient was recently admitted two weeks ago following a mechanical fall secondary to gait instability. As this fall was unwitnessed and the patient cannot remember what happened, I would like to rule out cardiac etiology for possible syncopal event. EKG was ordered and interpreted by myself. Please see [employer] system for official reading. Sinus rhythm with PAC. Reviewed laboratory studies. Troponin negative. Labs otherwise unremarkable. 19:31 Patient's family at bedside. Discussed patient's ED course and plan. I did not note any trauma on exam, but the family states they noticed a new bump on the patient's head. Plan for CT head w/o contrast. 20:[address] Gibson, radiologist. CT head negative for acute processes. 20:20 Reassessed patient. Discussed imaging results with him and his family. Plan to discharge home in good condition. Follow up and return precautions discussed. They are comfortable with this plan. They had initially inquired whether the patient could be admitted to the hospital [facility] for observation. I agreed to this plan but also mentioned that I see no medical indication for admission at this time. The patient seems like he would most benefit from a higher level of care and family is in process of working on this, and have found a 11/09 caregiver to ensure safety at this living facility. - Data Points Imaging Results: Imaging Impressions Head CT 05/21/17 19:39 Impression: Stable negative noncontrast CT of the brain . Results called to Dr. Morteza Martinez at 8:15 PM at the time of the interpretation. Imaging: Discussed imaging studies w/ computer technology instructor Radiologist Laboratory Results: Laboratory Results 05/21/17 19:03 05/21/17 19:03 05/21/17 05/21/17 19:03 19:03 WBC 6.42 10^3/uL 10^3/uL (3.80-9.50) RBC 4.43 10^6/uL 10^6/uL (4.40-6.38) Hgb 14.1 g/dL g/dL (13.7-17.5) Hct 41.2 % % (40.0-51.0) MCV 93.0 fL fL (81.5-99.8) MCH 31.8 pg pg (27.9-34.1) MCHC 34.2 g/dL g/dL (32.4-36.7) RDW 13.0 % % (11.5-15.2) Plt Count 246 10^3/uL 10^3/uL (150-400) MPV 9.5 fL fL (8.7-11.7) Neut % (Auto) 74.9 % H % (39.3-74.2) Lymph % (Auto) 12.3 % L % (15.0-45.0) [place] % (Auto) 10.1 % % (4.5-13.0) Eos % (Auto) 0.6 % % (0.6-7.6) Baso % (Auto) 0.5 % % (0.3-1.7) Nucleat RBC Rel Count 0.0 % % (0.0-0.2) Absolute Neuts (auto) 4.81 10^3/uL 10^3/uL (1.70-6.50) Absolute Lymphs (auto) 0.79 10^3/uL L 10^3/uL (1.00-3.00) Absolute Monos (auto) 0.65 10^3/uL 10^3/uL (0.30-0.80) Absolute Eos (auto) 0.04 10^3/uL 10^3/uL (0.03-0.40) Absolute Basos (auto) 0.03 10^3/uL 10^3/uL (0.02-0.10) Absolute Nucleated RBC 0.00 10^3/uL 10^3/uL (0-0.01) Immature Gran % 1.6 % H % (0.0-1.1) Immature Gran # 0.10 10^3/uL 10^3/uL (0.00-0.10) Sodium 140 mEq/L mEq/L (135-145) Potassium 4.5 mEq/L mEq/L (3.5-5.2) Chloride 103 mEq/L mEq/L (97-110) Carbon Dioxide 23 mEq/l mEq/l (22-31) Anion Gap 14 mEq/L mEq/L (8-16) BUN 23 mg/dL mg/dL (7-23) Creatinine 1.3 mg/dL mg/dL (0.7-1.3) Estimated GFR 53 Glucose 112 mg/dL H mg/dL (70-100) Calcium 9.0 mg/dL mg/dL (8.5-10.4) Troponin I < 0.012 ng/mL ng/mL (0.000-0.034) General Time Seen by Provider: 05/21/17 18:45 Initial Vital Signs: Initial Vital Signs Temperature (C) 36.8 C 05/21/17 18:51 Heart Rate 74 05/21/17 18:51 Respiratory Rate 16 05/21/17 18:51 Blood Pressure 117/84 H 05/21/17 18:51 O2 Sat (%) 95 05/21/17 18:51 O2 Delivery Mode Room Air Allergies/Adverse Reactions: No Known Allergies Allergy (Unverified 10/18/10 20:51) Home Medications: Medication Instructions Recorded Ammonium Lactate [Lac Hydrin 12% 1 larry TP BID@,05/11/17 (*)] Aspirin [Aspirin 325 mg (*)] 325 mg PO DAILY 05/11/17 Atorvastatin Calcium [Lipitor 20 20 mg PO DAILY18 05/11/17 mg (*)] Carbidopa/Levodopa 25/100Mg 1 tab PO TID@,,05/11/17 [Sinemet 25/100 MG (*)] Cholecalciferol Vit D3 [Vitamin D3 2,000 units PO DAILY 05/11/17 2000 units tab (OTC)] Cyanocobalamin [Vitamin B12 (*)] 1,000 mcg PO DAILY 05/11/17 Docusate Sodium [Colace 100 MG (*)] 200 mg PO DAILY18 05/11/17 Donepezil HCl [Aricept 5 MG (*)] 10 mg PO HS 05/11/17 Fludrocortisone Acetate [Florinef] 0.05 mg PO DAILY 05/11/17 Herbals/Supplements -Info Only 1 ea PO DAILY 05/11/17 Ketoconazole 2% [Nizoral 2% Cream 1 larry TP DAILY 05/11/17 (*)] [place]-3 Fatty Acids [Fish Oil 1000 2,000 mg PO DAILY 05/11/17 mg (*)] guaiFENesin [Mucinex 600 MG (*)] 1,200 mg PO DAILY 05/11/17 Acetaminophen [Tylenol 325mg (*)] 650 mg PO Q4HRS PRN tab 05/13/17 Departure - Departure Disposition: Home, Routine, Self-Care Clinical Impression: Fall Dementia Qualifiers: Dementia type: Parkinson's disease Dementia behavioral disturbance: with behavioral disturbance Qualified Code(s): G20 - Parkinson's disease Condition: Good Instructions: Fall Prevention (ED) Additional Instructions: Follow-up with your primary doctor in 2-3 days. Return to the Emergency Department for severe headache, vomiting, vision changes , confusion, fever or other concerns. Referrals: Bill Santo MD [Medical Doctor] - As per Instructions Report Scribed for: Morteza Martinez Report Scribed by: Lucy Odell Date of Report: 05/21/17 Time of Report: 19:18 Physician Review and Approval Statement: Portions of this note were transcribed by an ED scribe. I personally performed the history, physical exam, and medical decision making; and confirm the accuracy of the information in the transcribed note.
[2017-05-21 19:11] LABS: PLATELET COUNT 246 10^3/uL (150-400)
--- NOTE | 2017-05-21 19:12 | CPEKG ---
Heart Rate: 72 RR Interval: 833 P-R Interval: 158 QRSD Interval: 92 QT Interval: 384 QTC Interval: 421 P [place]: 0 QRS [place]: -62 T Wave [place]: 41 EKG Severity - ABNORMAL ECG - EKG Impression: SINUS RHYTHM EKG Impression: ATRIAL PREMATURE COMPLEX EKG Impression: LEFT ANTERIOR FASCICULAR BLOCK Electronically Signed By: Morteza Martinez 21-May-2017 21:11:24
[2017-05-21 20:37] VITALS: BP 121/71; PULSE 69; O2SAT 98
== END 2017-05-21 20:42 | disposition home or self-care (01) ==
LOC: EDUNIT# → EDBD
DX: G20 Parkinson's disease (principal); I25.10 Atherosclerotic heart disease of native coronary artery without angina pectoris; Z79.82 Long term (current) use of aspirin

== ENCOUNTER 2017-06-01 10:14 | Inpatient (IN) | payer OTHER ==
--- NOTE | 2017-06-01 10:24 | EDPHY ---
General Time Seen by Provider: 06/01/17 10:17 Narrative: CHIEF COMPLAINT: Loss of consciousness HISTORY OF PRESENT ILLNESS: Patient arrives by EMS and is seen at time arrival. EMS reports that he was at [facility] this morning. He was being assisted from the toilet when he lost consciousness. He was lowered to the ground and did not fall. He slid on the ground and reportedly had some twitching of the feet. This was momentary. He was never unattended. The patient is nonverbal thus cannot provide any complaints with this. EMS reports that he has been in this hospital recently for similar complaints. No other history obtainable from the patient given his nonverbal status. REVIEW OF SYSTEMS: Ten systems reviewed and are negative unless otherwise noted in the HPI SPECIALISTS: None PAST MEDICAL HISTORY: Per chart review, Parkinson's dementia, Alzheimer's dementia, dyslipidemia, PAST SURGICAL HISTORY: Unknown SOCIAL HISTORY: 11/09 home health care at [facility] FAMILY HISTORY: Unknown EXAMINATION General Appearance: Nonverbal. No acute distress. Head: normocephalic, atraumatic. No depression. No Ceja sign. No raccoon eyes. No injury to the scalp Eyes: Bilateral arcus senilis. Pupils equal and round, no conjunctival pallor or injection. Tracking symmetrically. No dysconjugate gaze ENT, Mouth: Mucous membranes moist Neck: Normal inspection, supple, non-tender Respiratory: Mild rhonchi. No crackles. No retractions or distress Cardiovascular: Regular rate and rhythm. No murmur. Gastrointestinal: Abdomen is soft and nontender Back: No crepitus or deformity. No obvious signs of trauma. Neurological: Nonverbal. Withdrawing symmetrically from painful stimuli and nonpainful stimuli. No neglect. Unable to perform pronator drift or proprioceptive testing. Skin: Warm and dry, no rash Extremities: Moving the extremities spontaneously but minimally. DIFFERENTIAL DIAGNOSES: Including but not limited to syncope, seizure, CVA, TIA, weakness, dehydration MDM: 10:20 a.m. Witnessed loss of consciousness with possible seizure activity in the lower extremities. Patient has history of repeat syncopal episodes recently. He is reportedly at baseline at this time which is nonverbal. He has no facial droop per obvious unilateral weaknesses. His vital signs are within normal limits. EKG is currently being obtained. Laboratory studies and chest x-ray will be ordered. Case discussed with Dr. Weinberg. 11:05 a.m. Patient's family members are now bedside. I discussed with him. They expressed concern that [facility] is not equipped to handle the patient. They are in the process of trying to get the patient accepted at a new facility in [place] with her having difficulty doing so. 12:00 p.m. Laboratory studies are unremarkable. 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 Urine will be obtained to rule out urinary tract infection prior to admission. I do feel the patient warrants admission due to recurrent syncope and will need evaluation for placement at a new facility. Case management has been involved the patient's care. I will discuss with hospitalist for admission. 12:35 p.m. Case discussed with hospitalist Dr. Brown. She will admit the patient to her service. He is admitted in stable condition. EKG interpretation: Dr. Weinberg SUPERVISION: Patient was independently examined, but I discussed the case with my secondary supervising physician Dr. Weinberg - History Smoking Status: Former smoker - Objective Vital Signs: Initial Vital Signs Temperature (C) 97.5 F 06/01/17 10:21 Heart Rate 73 06/01/17 10:21 Respiratory Rate 18 06/01/17 10:21 Blood Pressure 148/78 H 06/01/17 10:21 O2 Delivery Mode Room Air Allergies/Adverse Reactions: No Known Allergies Allergy (Unverified 10/18/10 20:51) Home Medications: Medication Instructions Recorded Ammonium Lactate [Lac Hydrin 12% 1 larry TP BID@,18 05/11/17 (*)] Aspirin [Aspirin 325 mg (*)] 325 mg PO DAILY 05/11/17 Atorvastatin Calcium [Lipitor 20 20 mg PO DAILY18 05/11/17 mg (*)] Cholecalciferol Vit D3 [Vitamin D3 2,000 units PO DAILY 05/11/17 2000 units tab (OTC)] Docusate Sodium [Colace 100 MG (*)] 100 mg PO DAILY18 05/11/17 Fludrocortisone Acetate [Florinef] 0.05 mg PO DAILY 05/11/17 Herbals/Supplements -Info Only 1 ea PO DAILY 05/11/17 Ketoconazole 2% [Nizoral 2% Cream 1 larry TP DAILY 05/11/17 (*)] [place]-3 Fatty Acids [Fish Oil 1000 2,000 mg PO DAILY 05/11/17 mg (*)] guaiFENesin [Mucinex 600 MG (*)] 1,200 mg PO DAILY 05/11/17 Mirabegron [Myrbetriq] 25 mg PO HS 06/01/17 traZODone [traZODONE 50MG (*)] 25 mg PO HS 06/01/17 Laboratory Results: Laboratory Results 06/01/17 11:09 06/01/17 11:09 Microbiology Results: MICROBIOLOGY 06/01/17 12:12 Urine,Catheterized Urine Culture - Preliminary Medications Given: Aspirin (Aspirin) 325 mg PO DAILY DEX Stop: 11/29/17 08:59 Last Admin: 06/02/17 10:10 Dose: Not Given Atorvastatin Calcium (Lipitor) 20 mg PO DAILY18 DEX Stop: 11/28/17 17:59 Last Admin: 06/01/17 18:13 Dose: Not Given Cholecalciferol (Vitamin D) 2,000 units PO DAILY DEX Stop: 11/29/17 08:59 Last Admin: 06/02/17 10:11 Dose: Not Given Docusate Sodium (Colace) 100 mg PO DAILY18 DEX Stop: 11/28/17 17:59 Last Admin: 06/01/17 18:14 Dose: Not Given Enoxaparin Sodium (Lovenox) 40 mg SC DAILY DEX Stop: 11/29/17 08:59 Last Admin: 06/02/17 10:11 Dose: Not Given Fludrocortisone Acetate (Florinef) 0.05 mg PO DAILY DEX Stop: 11/29/17 08:59 Last Admin: 06/02/17 10:11 Dose: Not Given Guaifenesin (Mucinex) 1,200 mg PO DAILY DEX Stop: 11/29/17 08:59 Last Admin: 06/02/17 10:11 Dose: Not Given Ceftriaxone Sodium/Dextrose (Rocephin 1 Gm (Premix)) 50 mls @ 100 mls/hr IV DAILY [facility] PRN Reason: Protocol Stop: 07/01/17 13:59 Last Admin: 06/02/17 10:09 Dose: 50 mls Ketoconazole (Nizoral 2% Cream) 1 larry TP DAILY DEX Stop: 07/02/17 08:59 Last Admin: 06/02/17 10:11 Dose: Not Given Lactic Acid (Lac Hydrin) 1 larry TP BID@ DEX Stop: 11/28/17 17:59 Last Admin: 06/02/17 10:11 Dose: Not Given Miscellaneous Medication (Mirabegron [Myrbetriq]) 0 mg PO HS DEX Stop: 11/28/17 20:59 Last Admin: 06/01/17 22:28 Dose: Not Given Nyqgq-4-Cjln Ethyl Esters (Fish Oil) 2,000 mg PO DAILY DEX Stop: 11/29/17 08:59 Last Admin: 06/02/17 10:12 Dose: Not Given Trazodone HCl (Trazodone) 25 mg PO HS DEX Stop: 11/28/17 20:59 Last Admin: 06/01/17 21:12 Dose: 25 mg Discontinued Medications Sodium Chloride (Ns) 500 mls @ 0 mls/hr IV EDNOW ONE; Wide Open PRN Reason: Protocol Stop: 06/01/17 11:20 Last Admin: 06/01/17 11:23 Dose: 500 mls Sodium Chloride (Ns) 1,000 mls @ 3,000 mls/hr IV ONCE ONE Stop: 06/01/17 13:01 Last Admin: 06/01/17 15:47 Dose: 1,000 mls Sodium Chloride (Ns) 1,000 mls @ 3,000 mls/hr IV ONCE ONE Stop: 06/02/17 08:56 Last Admin: 06/02/17 10:12 Dose: Not Given Departure - Departure Disposition: [facility] Clinical Impression: Debility Syncope Qualifiers: Syncope type: unspecified Qualified Code(s): R55 - Syncope and collapse Condition: Good
--- NOTE | 2017-06-01 10:27 | CPEKG ---
Heart Rate: 67 RR Interval: 896 P-R Interval: 180 QRSD Interval: 102 QT Interval: 416 QTC Interval: 439 P [place]: 3 QRS [place]: -69 T Wave [place]: 42 EKG Severity - ABNORMAL ECG - EKG Impression: SINUS RHYTHM EKG Impression: INCOMPLETE RBBB AND LAFB EKG Impression: LOW VOLTAGE IN FRONTAL LEADS Electronically Signed By: Jose Weinberg 01-Jun-2017 10:31:23
[2017-06-01 11:14] LABS: PLATELET COUNT 313 10^3/uL (150-400)
[2017-06-01] MEDS ORDERED: NS 500 ML IV ONE (11:19)
[2017-06-01 11:22] LABS: INR 1.09 (0.83-1.16); PROTIME(PATIENT) 14.3 SEC (12.0-15.0)
[2017-06-01 11:27] LABS: CREATINE KINASE 918 IU/L (0-224)
[2017-06-01] MEDS ORDERED: NS 1,000 ML IV ONE (12:42)
[2017-06-01] MEDS ORDERED: ONDANSETRON DISINTEGRATING 4 MG TAB PO PRN (12:42)
[2017-06-01] MEDS ORDERED: ACETAMINOPHEN 325 MG TAB PO PRN (12:42)
[2017-06-01] MEDS ORDERED: ONDANSETRON 4 MG/2 ML VIAL IVP PRN (12:42)
--- NOTE | 2017-06-01 14:31 | ASMTCMCOM ---
CM Note CM Note Notes: Patient presents to the ER and is admitted from [facility] after a witnessed LOC. Patient's is present and with whom I gathered most of my assessment. Patient is primatily non verbal at baseline. explains to me that patient had been at home with her until January, when he was admitted to [facility]/memory care. Patient's dementia and care needs have steadily increased since January. Patient's family has been working with Jud at "[facility] in [place]" and they are hoping to get patient transferred to [facility] where they can better meet patient's care needs. I met with patient's LANCE Ander who confirms this and has been in contact with Jud today. Ander explains that Jud ([facility]) received "incorrect" patient information for the patient, and that they would likely need current information to continue the referral/admisssion process. I contacted Jud in admissions at [facility] to inform her of patient's admission and family's request to communicate with her regarding potential admission to their facility upon discharge from [facility]. Jud confirms with me that she has been working with the family and although they have NOT accepted patient for admisssion, they are in the process of review. I have faxed (at Jud's request as they are not on [employer]) facesheet, ER report, and this CM note She will continue to communicate with family and CM will follow with discharge planning Date Signed: 06/01/2017 02:30 PM Electronically Signed By:Tata Bustos RN
--- NOTE | 2017-06-01 15:21 | GHP ---
[f rep st] HISTORY AND PHYSICAL DATE OF ADMISSION: 06/01/2017 CHIEF COMPLAINT: Syncope. HISTORY OF PRESENT ILLNESS: A 81-year-old male with a complicated medical history, who presents afte r a witnessed syncopal episode. The patient, currently a resident at [facility], with additional wy re providers hired by the family for 24-hour supervision. The patient was with his care providers, a s well as [facility] providers, today when he became more confused and agitated. He was taken to [facility] restroom to change his undergarments and became quite stiff and then lost appropriate interaction, described as an episode where he was snoring but with his eyes open. The patient ended up passing [facility] urine and stool while they were assisting him. He was placed on the toilet, slumped over to the ight, and then came to, with continued agitation and confusion. Per the care provider's reports, he has been very intermittent in his oral intake, needing to be prompted consistently to take food, and even when being provided food, displaying some confusion around what to do with it or whether he want s it. The patient has had continuous wet diapers. They deny any diarrhea or bloody diarrhea. Remai ns intermittently agitated, intermittently stiff, without recent fall since his last hospitalization. PAST MEDICAL HISTORY: 1. Advanced Parkinson's. 2. Dementia. 3. Coronary artery disease. 4. BPH. SOCIAL HISTORY: Negative for tobacco, alcohol, or illicit drugs. FAMILY HISTORY: Negative for Parkinson's. ADVANCE DIRECTIVES: The patient is [id number]. REVIEW OF SYSTEMS: A 10-point review of systems is negative with the exception of that reported in t he HPI. PHYSICAL EXAMINATION: VITAL SIGNS: Blood pressure 103/72, heart rate 66, respiratory rate 18, 97% o n room air, 36.4. GENERAL: This is a very thin-appearing male lying flat in bed with restless movin g legs. HEENT: Notable for dry mucous membranes. Eye exam is negative for any icterus. CARDIAC: Patient's heart sounds are distant but regular. PULMONARY: Clear to auscultation bilaterally. ANNA ROINTESTINAL: Patient is thin, has positive bowel sounds. Abdomen is soft and nontender to palpatio n. MUSCULOSKELETAL: Negative for any lower extremity edema. SKIN: Negative for any rashes. NEURO LOGIC: The patient is nonverbal, intermittently agitated and then somnolent. DATA: White count 11.2, last check 6; hematocrit 44.1; platelet count of 313. Creatinine 1.1, appea rs baseline is 0.8. Urinalysis shows 50 to 182 white blood cells, 15 to 25 red blood cells, positive leukocyte esterase. Telemetry, which I personally reviewed and interpreted, shows sinus rhythm with no acute ST-T changes . Chest x-ray, which I personally reviewed and interpreted, shows no acute infiltrates or edema. ASSESSMENT AND PLAN: This is a 81-year-old male presenting with syncopal episode. 1. Acute syncope, suspect likely related to acute infectious process and poor oral intake. Will adm it the patient. Do not believe he could tolerate cardiac monitoring secondary to his dementia and ag itation. We will attempt to keep him on telemetry this evening to monitor for any tachy- or bradyarr hythmias. We will treat with IV fluids, as he appears dehydrated on his labs, and will initiate anti biotics for urinary tract infection and follow his improvement overnight. 2. Acute urinary tract infection. This is a change from previous urinalysis. Will initiate intrave nous ceftriaxone and send urine for culture. 3. Acute leukocytosis, presumed secondary to urinary tract infection. I have concerns this could be a bloodborne infection as well. We will attempt blood cultures if safe for nursing staff to draw th em. 4. Advanced Parkinson's. This is complicating the patient's outpatient care per care providers, int ermittently with marked rigidity, making changing his undergarments quite difficult. 5. Coronary artery disease. Will continue the patient's home medications. His initial EKG is not c oncerning for acute changes. 6. Benign prostatic hypertrophy. Can continue his outpatient medications. Prophylaxis with Lovenox . Diet as tolerated, regular. DISPOSITION: I expect greater than 2 midnights. The patient is elderly, quite complicated with many needs, and acute urinary tract infection and syncope. Suspect he will need more diagnostics and sup portive care before safe for disposition. I have discussed the case with the emergency room donis smith. Patient will be triaged to the medical-surgical floor for care. /[id number]/MODL
--- NOTE | 2017-06-01 15:43 | PDMN ---
Medical Necessity Medical necessity: Pt meets INPT criteria per MD as of 06/01/17 (est. LOS >2 MN for eval/mgmt of acute syncope, suspect r/t acute infectious process and poor oral intake, acute UTI, acute leukocytosis, advanced Parkinson's, CAD per H&P).
[2017-06-01] MEDS: ATORVASTATIN CALCIUM 20 MG TAB PO SCH (18:13)
[2017-06-01] MEDS: AMMONIUM LACTATE 12% 8 OZ LOTION TP SCH (18:13)
[2017-06-01] MEDS: DOCUSATE SODIUM 100 MG CAP PO SCH (18:14)
[2017-06-01] MEDS: traZODone 50 MG TAB PO SCH (21:12)
[2017-06-01] MEDS: Mirabegron [Myrbetriq] 25 MG PO SCH (22:28)
[2017-06-02 05:08] LABS: PLATELET COUNT 261 10^3/uL (150-400)
[2017-06-02] MEDS ORDERED: NS 1,000 ML IV ONE ×2 (08:37→15:43)
[2017-06-02] MEDS: ASPIRIN 325 MG TAB PO SCH (10:10)
[2017-06-02] MEDS: guaiFENesin 600 MG TAB.ER PO SCH (10:11)
[2017-06-02] MEDS: AMMONIUM LACTATE 12% 8 OZ LOTION TP SCH ×2 (10:11→17:51)
[2017-06-02] MEDS: ENOXAPARIN 40 MG/0.4 ML SYR SC SCH (10:11)
[2017-06-02] MEDS: FLUDROCORTISONE ACETATE 0.1 MG TAB PO SCH (10:11)
[2017-06-02] MEDS: CHOLECALCIFEROL VIT D3 2,000 UNITS TAB/CAP PO SCH (10:11)
[2017-06-02] MEDS: KETOCONAZOLE 2% 15 GM CREAM TP SCH (10:11)
[2017-06-02] MEDS: OMEGA-3 FATTY ACIDS 1,000 MG CAP PO SCH (10:12)
--- NOTE | 2017-06-02 12:58 | ASMTCMCOM ---
CM Note CM Note Notes: Patient admitted with UTI.. Pt has a hx of parkinson's and dementia. Pt was liviing at [facility] at time of admission. Patient's Pat has been working with Jessica in admissions at [facility] , a new SNF in [place]. [facility] is not in [employer]. Their fax # is [phone]. LM to determine if they will be able to take pt. Pt ortizjudy has / caregivers and they are present in the room. CM will continue to follow for DC planning Date Signed: 06/02/2017 12:57 PM Electronically Signed By:Sola Diez LCSW
--- NOTE | 2017-06-02 17:32 | HOSPPROG ---
Hospitalist Progress Note Assessment/Plan: # Acute UTI - pt with elevated WBC, encephalopathy and abnormal UA at presentation urine culture with Actinotignum Schaalii - change to beta lactam Abx for isolated organism - no burris # acute encephalopahty - multifactorial from underlying dementia and acute infection oxygen saturations 98% on RA - cont tx above - cont supportive care # dehydration - pt taking very little PO intake - cont IV hydration - cont monitor I&O # advanced dementia # advanced parkinsons # proph - lovenox # diet- regular # dispo - > 2MN as requiring ongoing IV abx and monitoring for acute UTI I have discussed the case with the RN - will give IVF bolus for Poor urine output - continue supportive care Subjective: intermittent agitation Objective: Vital Signs Temp Pulse Resp BP Pulse Ox 36.7 C 64 18 169/90 H 98 06/02/17 16:00 06/02/17 16:00 06/02/17 16:00 06/02/17 16:00 06/02/17 16:00 Laboratory Results 06/02/17 04:57 06/02/17 04:57 06/01/17 06/02/17 06/03/17 05:59 05:59 05:59 Intake Total 1150 Balance 1150 PT 14.3 SEC (12.0-15.0) 06/01/17 11:09 INR 1.09 (0.83-1.16) 06/01/17 11:09 - Physical Exam Constitutional: chronically ill appearing Eyes: anicteric sclera Ears, Nose, Mouth, Throat: dry mucous membranes Cardiovascular: regular rate and rhythym Respiratory: no respiratory distress Gastrointestinal: normoactive bowel sounds Genitourinary: no bladder fullness Skin: warm Musculoskeletal: No asymmetric calves Neurologic: No AAOx3 Psychiatric: agitated Lymph, Heme, Immunologic: no cervical LAD ICD10 Worksheet Patient Problems: Problems Problem Status Onset Debility Acute Syncope Acute Altered mental status Acute Dementia Acute Parkinsons disease Acute
[2017-06-02] MEDS: ATORVASTATIN CALCIUM 20 MG TAB PO SCH (17:51)
[2017-06-02] MEDS: DOCUSATE SODIUM 100 MG CAP PO SCH (17:51)
[2017-06-02] MEDS: AMPICILLIN/SULBACTAM 3 GM VIAL IV SCH ×2 (18:35→23:16)
[2017-06-02] MEDS: traZODone 50 MG TAB PO SCH (20:03)
[2017-06-02] MEDS: Mirabegron [Myrbetriq] 25 MG PO SCH (20:05)
[2017-06-03] MEDS: AMPICILLIN/SULBACTAM 3 GM VIAL IV SCH ×3 (05:01→18:42)
[2017-06-03] MEDS: NS 1,000 ML IV SCH ×2 (05:02→18:39)
[2017-06-03] MEDS: FLUDROCORTISONE ACETATE 0.1 MG TAB PO SCH (09:02)
[2017-06-03] MEDS: ASPIRIN 325 MG TAB PO SCH (09:06)
[2017-06-03] MEDS: guaiFENesin 600 MG TAB.ER PO SCH (09:09)
[2017-06-03] MEDS: CHOLECALCIFEROL VIT D3 2,000 UNITS TAB/CAP PO SCH (09:10)
[2017-06-03] MEDS: OMEGA-3 FATTY ACIDS 1,000 MG CAP PO SCH (09:12)
[2017-06-03] MEDS: ENOXAPARIN 40 MG/0.4 ML SYR SC SCH (09:20)
--- NOTE | 2017-06-03 12:47 | HOSPPROG ---
Hospitalist Progress Note Assessment/Plan: # Acute UTI - pt with elevated WBC, encephalopathy and abnormal UA at presentation urine culture with Actinotignum Schaalii - continue Unasyn day 04/25 - no burris # acute encephalopathy - multifactorial from underlying dementia and acute infection- seems more interactive and clear today oxygen saturations 98% on RA - cont tx above - cont supportive care # dehydration - pt taking very little PO intake - cont IV hydration prn - cont monitor I&O # advanced dementia # advanced parkinsons # proph - lovenox # diet- regular # dispo - > 2MN as requiring ongoing IV abx and monitoring for acute UTI I have discussed the case with the RN - patient responded well to IVF yesterday - continue to monitor intake closely Subjective: eating breakfast Objective: Vital Signs Temp Pulse Resp BP Pulse Ox 36.5 C 77 16 173/83 H 98 06/03/17 12:00 06/03/17 12:00 06/03/17 12:00 06/03/17 12:00 06/03/17 12:00 Laboratory Results 06/03/17 04:30 06/03/17 04:30 06/02/17 06/03/17 06/04/17 05:59 05:59 05:59 Intake Total 1150 250 Balance 1150 250 PT 14.3 SEC (12.0-15.0) 06/01/17 11:09 INR 1.09 (0.83-1.16) 06/01/17 11:09 - Physical Exam Constitutional: chronically ill appearing Eyes: anicteric sclera Ears, Nose, Mouth, Throat: moist mucous membranes Cardiovascular: regular rate and rhythym Respiratory: no respiratory distress Gastrointestinal: normoactive bowel sounds Genitourinary: no bladder fullness Skin: warm Musculoskeletal: No asymmetric calves Neurologic: No AAOx3 Psychiatric: No interacting appropriately Lymph, Heme, Immunologic: no cervical LAD ICD10 Worksheet Patient Problems: Problems Problem Status Onset Debility Acute Syncope Acute Altered mental status Acute Dementia Acute Parkinsons disease Acute
[2017-06-03] MEDS: AMMONIUM LACTATE 12% 8 OZ LOTION TP SCH ×2 (13:02→18:39)
[2017-06-03] MEDS: KETOCONAZOLE 2% 15 GM CREAM TP SCH (13:33)
--- NOTE | 2017-06-03 16:33 | ASMTCMCOM ---
CM Note CM Note Notes: Unable to reach anyone at [facility] today or leave a msg to verify that they are working with pt's Pat on admission. CM to follow. Date Signed: 06/03/2017 04:32 PM Electronically Signed By:Sola Diez LCSW
[2017-06-03] MEDS: ATORVASTATIN CALCIUM 20 MG TAB PO SCH (18:47)
[2017-06-03] MEDS: DOCUSATE SODIUM 100 MG CAP PO SCH (18:50)
[2017-06-03] MEDS: traZODone 50 MG TAB PO SCH (21:40)
[2017-06-03] MEDS: Mirabegron [Myrbetriq] 25 MG PO SCH (21:48)
[2017-06-04] MEDS: AMPICILLIN/SULBACTAM 3 GM VIAL IV SCH ×4 (00:23→18:08)
[2017-06-04] MEDS: ENOXAPARIN 40 MG/0.4 ML SYR SC SCH (08:23)
[2017-06-04] MEDS: ASPIRIN 325 MG TAB PO SCH (08:23)
[2017-06-04] MEDS: CHOLECALCIFEROL VIT D3 2,000 UNITS TAB/CAP PO SCH (08:23)
[2017-06-04] MEDS: guaiFENesin 600 MG TAB.ER PO SCH (08:23)
[2017-06-04] MEDS: FLUDROCORTISONE ACETATE 0.1 MG TAB PO SCH (08:23)
[2017-06-04] MEDS: OMEGA-3 FATTY ACIDS 1,000 MG CAP PO SCH (08:23)
[2017-06-04] MEDS: NS 1,000 ML IV SCH (08:24)
[2017-06-04] MEDS: KETOCONAZOLE 2% 15 GM CREAM TP SCH (08:25)
[2017-06-04] MEDS: AMMONIUM LACTATE 12% 8 OZ LOTION TP SCH ×2 (08:25→18:12)
--- NOTE | 2017-06-04 17:23 | ASMTCMCOM ---
CM Note CM Note Notes: Met with Pat, patient's and his daughter, Judith regarding discharge plan for the patient. They do not want patient to return to [facility]. [facility]F they would like patient to be placed in. and Judith said patient has been treated for the past 2 years by ALFREDO Gallego with [facility] and they would like a neurology consult to review patient's medications and make recommendations. Patient was taking Seroquel for sleep, agitation and a dopamine (Cinamat?) for his restless legs, stiffnes and other parkinson like symptoms. Pat states the neurology group has stated patient does not have Parkinsons but has parkinson like symptoms. Patient's medications were being given intermittantly and then stopped at [facility]. They are conceerned that his symptoms are returning and he is uncomfortable. They would also like a palliative care consult which I will set up tomorrow. The plan is to locate a higher level of care for patient in a SNF. Referrals have been sent out. The family states they will have to take him home if we cannot locate a facility. Jud at [facility] says they can only take him if he returns to baseline where he was ambulatory. [facility] states they will take him back but he needs a higher level of care. Spoke with Laura the Revenue Cycle Consultant who explained what happened with his records. Their made some inaccurate statements in the progress notes but went in and corrected those notes. The corrected progress notes were given to the family last Sunday06-01-17. PT states patient has not been appropriate for therapy right now as he is bed bound. However, Joy will check on patient again tomorrow to see if he is improving at all. At present, patient is not eligible for rehab because he is not mobile. Family is looking for remote computer terminal operator care in the hopes he may improve enough for rehab. If he doesn't they are hoping to get a LTC placement for him in a SNF. NAOMY will continue to follow for DC planning. Date Signed: 06/04/2017 05:23 PM Electronically Signed By:Kaya Gibson LCSW
[2017-06-04] MEDS: DOCUSATE SODIUM 100 MG CAP PO SCH (18:11)
[2017-06-04] MEDS: ATORVASTATIN CALCIUM 20 MG TAB PO SCH (18:11)
--- NOTE | 2017-06-04 20:04 | HOSPPROG ---
Hospitalist Progress Note Assessment/Plan: # Acute UTI - pt with elevated WBC, encephalopathy and abnormal UA at presentation urine culture with Actinotignum Schaalii - continue Unasyn day 05/26 - no burris # acute encephalopathy - multifactorial from underlying dementia and acute infection- seems even clearer today oxygen saturations 98% on RA - cont tx above - cont supportive care # dehydration - pt taking more PO intake - cont IV hydration prn - cont monitor I&O # advanced dementia # advanced parkinsons # proph - lovenox # diet- regular # dispo - > 2MN as requiring ongoing IV abx and monitoring for acute UTI I have discussed the case with the RN - pt denied by SNF [facility] - will hae PT eval for candidacy at rehab SNF Subjective: no events overnight Objective: Vital Signs Temp Pulse Resp BP Pulse Ox 36.4 C 63 16 166/92 H 93 06/04/17 16:00 06/04/17 16:00 06/04/17 16:00 06/04/17 16:00 06/04/17 16:00 Laboratory Results 06/03/17 04:30 06/03/17 04:30 06/03/17 06/04/17 06/05/17 05:59 05:59 05:59 Intake Total 250 1150 936 Balance 250 1150 936 PT 14.3 SEC (12.0-15.0) 06/01/17 11:09 INR 1.09 (0.83-1.16) 06/01/17 11:09 - Physical Exam Constitutional: chronically ill appearing Eyes: anicteric sclera Cardiovascular: regular rate and rhythym Respiratory: no respiratory distress Gastrointestinal: normoactive bowel sounds Genitourinary: no bladder fullness Skin: warm Musculoskeletal: No asymmetric calves Neurologic: No AAOx3 Psychiatric: No agitated Lymph, Heme, Immunologic: no cervical LAD ICD10 Worksheet Patient Problems: Problems Problem Status Onset Debility Acute Syncope Acute Altered mental status Acute Dementia Acute Parkinsons disease Acute
[2017-06-04] MEDS: traZODone 50 MG TAB PO SCH (20:12)
[2017-06-04] MEDS: Mirabegron [Myrbetriq] 25 MG PO SCH (20:16)
[2017-06-05] MEDS: AMPICILLIN/SULBACTAM 3 GM VIAL IV SCH ×5 (00:06→23:25)
[2017-06-05] MEDS: ENOXAPARIN 40 MG/0.4 ML SYR SC SCH (07:40)
[2017-06-05] MEDS: ASPIRIN 325 MG TAB PO SCH (07:41)
[2017-06-05] MEDS: CHOLECALCIFEROL VIT D3 2,000 UNITS TAB/CAP PO SCH (07:42)
[2017-06-05] MEDS: FLUDROCORTISONE ACETATE 0.1 MG TAB PO SCH (07:42)
[2017-06-05] MEDS: OMEGA-3 FATTY ACIDS 1,000 MG CAP PO SCH (07:42)
[2017-06-05] MEDS: guaiFENesin 600 MG TAB.ER PO SCH (07:47)
[2017-06-05] MEDS ORDERED: hydrALAZINE 20 MG/ML VIAL IVP PRN (09:02)
[2017-06-05] MEDS: NS 1,000 ML IV SCH (10:14)
[2017-06-05] MEDS: KETOCONAZOLE 2% 15 GM CREAM TP SCH (10:32)
[2017-06-05] MEDS: AMMONIUM LACTATE 12% 8 OZ LOTION TP SCH ×2 (10:33→23:26)
--- NOTE | 2017-06-05 13:06 | HOSPPROG ---
Hospitalist Progress Note Assessment/Plan: # Uncontrolled HTN - SBP in 200's this am - previous range SBP from 120-190 - dropped pressure to 100's with 5mg hydralazine IV- will dc - start Norvasc 2.5 tomorrow - hopes to dull the peaks without accentuating lows # Acute UTI - pt with elevated WBC, encephalopathy and abnormal UA at presentation urine culture with Actinotignum Schaalii - continue Unasyn day 06/25 - no burris # acute encephalopathy - multifactorial from underlying dementia and acute infection- seems even clearer today oxygen saturations 98% on RA - cont tx above - cont supportive care # dehydration - pt taking more PO intake - cont IV hydration prn - cont monitor I&O # advanced dementia # advanced parkinsons # proph - lovenox # diet- regular # dispo - > 2MN as requiring ongoing IV abx and monitoring - working on safe placement I have discussed the case with the RN - gave prn dose of hydralazine this am for BP markedly elevated Subjective: took some breakfast Objective: Vital Signs Temp Pulse Resp BP Pulse Ox 36.5 C 65 16 101/49 L 92 06/05/17 07:37 06/05/17 09:15 06/05/17 09:15 06/05/17 09:15 06/05/17 09:15 Laboratory Results 06/03/17 04:30 06/03/17 04:30 06/04/17 06/05/17 06/06/17 05:59 05:59 05:59 Intake Total 1150 936 Balance 1150 936 PT 14.3 SEC (12.0-15.0) 06/01/17 11:09 INR 1.09 (0.83-1.16) 06/01/17 11:09 - Physical Exam Constitutional: chronically ill appearing Eyes: anicteric sclera Ears, Nose, Mouth, Throat: dry mucous membranes Cardiovascular: regular rate and rhythym Respiratory: no respiratory distress, no rales or rhonchi Gastrointestinal: normoactive bowel sounds Genitourinary: no bladder fullness Skin: warm Musculoskeletal: No asymmetric calves Neurologic: No AAOx3 Psychiatric: No agitated Lymph, Heme, Immunologic: no cervical LAD ICD10 Worksheet Patient Problems: Problems Problem Status Onset Debility Acute Syncope Acute Altered mental status Acute Dementia Acute Parkinsons disease Acute
--- NOTE | 2017-06-05 15:25 | ASMTCMCOM ---
CM Note CM Note Notes: Patient has been turned down by [facility] who states his needs are more than they can handle and [facility] said no due to not having a bed. Two calls have been made to [facility] to discuss their memory care unit. Spoke with Pat, patient's about the facilities that have turned patient down. Also let her know the neurology consult would have to take place on an outpatient basis per Dr. Mendes. [facility] called back and stated patient is on a waiting list and they will not have a bed until the first of June. (per Melanie [phone])Spoke with patient's daughter to let her know how the search was going. Judith states they will take him home if they have to until a placement can be found. Judith requested we do a blanket referral today to see if we got any acceptances anywhere. NAOMY sent out a blanket referral to SNF's. CM will follow. Date Signed: 06/05/2017 03:25 PM Electronically Signed By:Kaya Gibson LCSW
--- NOTE | 2017-06-05 16:37 | ASMTCMCOM ---
NAOMY Note CM Note Notes: Patient's family requested an informational session with Abbie for palliative support that can eventually change to hospice when needed. They would like the informational session in their home. Contacted Yumi at [facility] to see if they can do this. Yumi states they can meet the family tomorrow at 11:00 AM at their home. She will let us know what the outcome of the informational session is. Yumi's phone number is [phone]. CM will follow. Date Signed: 06/05/2017 04:37 PM Electronically Signed By:Kaya Gibson LCSW
[2017-06-05] MEDS: ATORVASTATIN CALCIUM 20 MG TAB PO SCH (18:01)
[2017-06-05] MEDS: DOCUSATE SODIUM 100 MG CAP PO SCH (18:01)
[2017-06-05] MEDS: traZODone 50 MG TAB PO SCH (23:25)
[2017-06-05] MEDS: Mirabegron [Myrbetriq] 25 MG PO SCH (23:29)
[2017-06-06] MEDS: AMPICILLIN/SULBACTAM 3 GM VIAL IV SCH ×3 (05:09→18:41)
[2017-06-06] MEDS ORDERED: amLODIPine BESYLATE 5 MG TAB PO SCH (09:00)
--- NOTE | 2017-06-06 10:18 | HOSPPROG ---
Hospitalist Progress Note Assessment/Plan: # Uncontrolled HTN - SBP in 200's yest, now 130's-170's - dropped pressure to 100's with 5mg hydralazine IV- since d/c'd - cont daily norvasc, up-titrate as indicated - d/c myrbetriq, can contribute to elevated BPs # Acute UTI - pt with elevated WBC, encephalopathy and abnormal UA at presentation urine culture with Actinotignum Schaalii - continue Unasyn day 07/26 - no burris # acute encephalopathy - multifactorial from underlying dementia and acute infection, suspect declining from parkinson's oxygen saturations 98% on RA - dc myrbetriq, can hasten delirium - cont supportive care # dehydration - minimal po intake per RN - cont IV hydration prn - cont monitor I&O - speech eval today for swallow function, ?aspirating # advanced parkinsons with dementia - seems hospice appropriate. Abbie meeting with family today for outpt palliative care. # proph - lovenox # diet- regular # dispo - > 2MN as requiring ongoing IV abx and monitoring - working on safe placement, possible memory care unit. Can't go back to [facility]. Family also considering home if unable to obtain memory care placement. Discussed with CM. Subjective: Pt resting comfortably. Mostly non-verbal for me, not answering questions or interacting, but not terribly agitated at the moment. Not taking po per RN. No fevers/chills. Objective: Vital Signs Temp Pulse Resp BP Pulse Ox 36.2 C 62 18 172/84 H 94 06/06/17 07:08 06/06/17 07:08 06/06/17 07:08 06/06/17 07:08 06/06/17 07:08 Laboratory Results 06/03/17 04:30 06/03/17 04:30 06/05/17 06/06/17 06/07/17 05:59 05:59 05:59 Intake Total 936 Balance 936 PT 14.3 SEC (12.0-15.0) 06/01/17 11:09 INR 1.09 (0.83-1.16) 06/01/17 11:09 - Physical Exam Constitutional: no apparent distress Eyes: PERRL Ears, Nose, Mouth, Throat: moist mucous membranes Cardiovascular: regular rate and rhythym Respiratory: no respiratory distress, other (coarse breath sounds b/l) Gastrointestinal: normoactive bowel sounds, soft, non-tender abdomen Skin: warm Musculoskeletal: generalized weakness Psychiatric: encephalopathic ICD10 Worksheet Patient Problems: Problems Problem Status Onset Debility Acute Syncope Acute Altered mental status Acute Dementia Acute Parkinsons disease Acute
[2017-06-06] MEDS: KETOCONAZOLE 2% 15 GM CREAM TP SCH (10:19)
[2017-06-06] MEDS: AMMONIUM LACTATE 12% 8 OZ LOTION TP SCH ×2 (10:19→18:34)
[2017-06-06] MEDS: ASPIRIN 325 MG TAB PO SCH (10:33)
[2017-06-06] MEDS: FLUDROCORTISONE ACETATE 0.1 MG TAB PO SCH (10:34)
[2017-06-06] MEDS: CHOLECALCIFEROL VIT D3 2,000 UNITS TAB/CAP PO SCH (10:36)
[2017-06-06] MEDS: ENOXAPARIN 40 MG/0.4 ML SYR SC SCH (10:37)
[2017-06-06] MEDS: guaiFENesin 600 MG TAB.ER PO SCH (10:37)
[2017-06-06] MEDS: OMEGA-3 FATTY ACIDS 1,000 MG CAP PO SCH (10:37)
[2017-06-06] MEDS: NS 1,000 ML IV SCH (15:55)
--- NOTE | 2017-06-06 16:21 | ASMTCMCOM ---
CM Note CM Note Notes: This morning CM continued efforts to secure a placement for pt per family request. Pt accepted at [facility] and [facility] for SNF. Dghtr Fara present in room and this CM updated her, she says the family is not particularly interested in these facilities. Numerous referrals are pending, pt family is willing to pay for 24/hr care at a SNF and/or pay now for a LTC placement. Pt does not require a locked unit as he is immobile. [facility] met w pt Pat today, reports Christa RN will be on on-site in the am to assess pt for SNF placement. There is still a wait-list for [facility]. Caitlyn Leiva met w family this am at [facility] in [place], by the afternoon family decided they plan for pt to [facility] and continued 24/hr private duty care ([facility]). Hospice order sent to [facility] in [employer]. Equipment to be delivered this evening. Pt still wants Christa with [facility] to assess pt in the morning. Caitlyn scheduled 1200 transport tomorrow 06/07/17, PCS completed with a copy in chart and original in front of chart for bettermarks. D/c plan of care: Home with [facility] hospice ([phone]) and 24/hr care with [facility] ([phone]) Date Signed: 06/06/2017 04:20 PM Electronically Signed By:CRIS Verduzco
[2017-06-06] MEDS: DOCUSATE SODIUM 100 MG CAP PO SCH (18:34)
[2017-06-06] MEDS: ATORVASTATIN CALCIUM 20 MG TAB PO SCH (18:34)
[2017-06-06] MEDS: Mirabegron [Myrbetriq] 25 MG PO SCH (20:34)
[2017-06-06] MEDS: traZODone 50 MG TAB PO SCH (20:34)
[2017-06-07] MEDS: AMPICILLIN/SULBACTAM 3 GM VIAL IV SCH ×3 (00:28→12:07)
[2017-06-07 02:42] VITALS: BP 133/67
--- NOTE | 2017-06-07 08:46 | PDIAF ---
- Diagnosis Diagnosis: end stage parkinsons Code Status: Do Not Resuscitate - Medication Management Discharge Medications: Medications to Continue on Transfer Ammonium Lactate [Lac Hydrin 12% (*)] 1 larry TP BID@05/11/17 [Last Taken 18:00] Docusate Sodium [Colace 100 MG (*)] 100 mg PO DAILY18 05/11/17 [Last Taken 05/31] Ketoconazole 2% [Nizoral 2% Cream (*)] 1 larry TP DAILY 05/11/17 [Last Taken 05/31] traZODone [traZODONE 50MG (*)] 25 mg PO HS 06/01/17 [Last Taken 05/31/17] Mbx Soln;Maalox/Diphen/Lido [Maalox/Diphenhydramine/Lido] 5 ml PO PRN PRN #30 ml 06/07/17 [Last Taken Unknown] Discharge Medications: Refer to the Discharge Home Medication list for PRN reason. - Orders Oxygen: 2 LPM prn SOB Diet Recommendation: no restrictions on diet Diet Texture: Regular Texture Diet, Honey Thick Liquids, Meds Crushed in Puree Additional Instructions: [facility] at home - Follow Up Care Current Providers and Referrals: Patient,NotPresent [Unknown] - As per Instructions
--- NOTE | 2017-06-07 09:28 | ASMTCMCOM ---
CM Note CM Note Notes: Patient is ready to dc home with hospice. Final orders via [employer]. Awaiting family. Transport pre-arranged per previous CM for 12 noon. CM available for needs. Date Signed: 06/07/2017 09:27 AM Electronically Signed By:Bianca Garcia RN
[2017-06-07] MEDS: ENOXAPARIN 40 MG/0.4 ML SYR SC SCH (10:28)
[2017-06-07] MEDS: AMMONIUM LACTATE 12% 8 OZ LOTION TP SCH (10:28)
[2017-06-07] MEDS: KETOCONAZOLE 2% 15 GM CREAM TP SCH (10:30)
[2017-06-07] MEDS: guaiFENesin 600 MG TAB.ER PO SCH (10:30)
[2017-06-07] MEDS: OMEGA-3 FATTY ACIDS 1,000 MG CAP PO SCH (10:30)
[2017-06-07] MEDS: CHOLECALCIFEROL VIT D3 2,000 UNITS TAB/CAP PO SCH (12:08)
[2017-06-07] MEDS: FLUDROCORTISONE ACETATE 0.1 MG TAB PO SCH (12:08)
[2017-06-07] MEDS: ASPIRIN 325 MG TAB PO SCH (12:08)
--- NOTE | 2017-06-07 13:06 | GDS ---
[f rep st] DISCHARGE SUMMARY DISCHARGE DIAGNOSES: 1. Acute on chronic encephalopathy in the setting of advanced dementia. 2. End-stage Parkinson syndrome. 3. Urinary tract infections, status post 7 days of treatment with Unasyn. 4. Hypertension. 5. Volume depletion. HISTORY: For details, please see the history and physical dated June 01, 2017. In brief, the patie nt is a 81-year-old male with end-stage Parkinson disease who presented to the emergency department w ith acute encephalopathy and a syncopal episode. He was found to have UTI and culture grew Actinotig num schaalii. He was treated with 7 days of IV Unasyn. Regarding his end-stage Parkinson's, I reviewed the case with his outpatient neurology team. He has currently been declining over several months, and they have actually stopped his Sinemet and Requip. He does have a history of dysphagia, likely related to his end-stage Parkinson disease. He has been managed on honey-thick liquids with medications crushed in puree. He underwent Palliative Care and Hospice evaluation by [facility], and the family ultimately wishes for him to discharge home on hospice which I believe is appropriate. DISPOSITION: The patient is discharged home with [facility] in stable condition. DISCHARGE MEDICATIONS: Please see [facility] for completed outpatient medication list. Several medica tions were discontinued due to his dysphagia and plans for hospice. He was prescribed Magic mouthwas h at discharge for what appears to be mucositis. FOLLOWUP: [facility] will follow the patient in his home setting. /[id number]/MODL
== END 2017-06-07 12:08 | disposition hospice, home (50) | DRG 689 ==
LOC: EDBD → EDUNIT# → F3N 13:20
PROVIDERS: ADMIT Hospitalist; ATTEND Hospitalist
DX: N39.0 Urinary tract infection, site not specified (principal); B96.89 Other specified bacterial agents as the cause of diseases classified elsewhere; G93.40 Encephalopathy, unspecified; G31.83 Neurocognitive disorder with Lewy bodies; F02.80 Dementia in other diseases classified elsewhere, unspecified severity, without behavioral disturbance, psychotic disturbance, mood disturbance, and anxiety; R55 Syncope and collapse; E86.0 Dehydration; I10 Essential (primary) hypertension; R13.10 Dysphagia, unspecified; K12.30 Oral mucositis (ulcerative), unspecified; N40.0 Benign prostatic hyperplasia without lower urinary tract symptoms; I25.10 Atherosclerotic heart disease of native coronary artery without angina pectoris; Z66 Do not resuscitate
CPT/HCPCS: 92610-GN; 97162-GP; 97166-GO; 97530-GO; 97530-GP; G8978-GP-CM; G8979-GP-CK; G8980-GP-CN; G8987-GO-CN; G8988-GO-CM; G8996-GN-CL; G8997-GN-CL; J0295; J0360; J0696; J1650